=== PATIENT | female | born 1960 | race Caucasian/White ===

== ENCOUNTER 2021-07-16 16:09 | Outpatient (CLI) | payer OTHER, SELFPAY ==
--- NOTE | 2021-07-16 16:17 | MM_ITS ---
WS: [id number] BILATERAL DIGITAL SCREENING MAMMOGRAPHY WITH CAD AND 3-D TOMOSYNTHESIS CLINICAL INFORMATION: SCREENING HISTORY: Screening mammogram. Bilateral breast soreness. COMPARISON: TECHNIQUE: Bilateral CC and MLO views. FINDINGS: Scattered fibroglandular densities bilaterally. Stable intramammary lymph node upper outer LEFT breas t. Evidence of prior biopsy with clip in the upper inner LEFT breast. No suspicious focal mass, asymm etry, calcifications, or architectural distortion. No evidence of malignancy. MM/[place] [id number] IMPRESSION: BI-RADS: 2-Benign FOLLOW UP: 1 Year Follow-up Recommend return to annual screening mammography.
== END 2021-07-16 16:10 | disposition home or self-care (01) ==
PROVIDERS: PCP Family Medicine; Visit Provider Family Medicine
DX: Z12.31 Encounter for screening mammogram for malignant neoplasm of breast (principal)
CPT/HCPCS: 77063; 77067